=== PATIENT | male | born 1950 | race Caucasian/White ===

== ENCOUNTER → 2017-02-06 | Outpatient (CLI) | payer MEDICARE, OTHER ==
[~2017-02-06] MED LIST: ADALAT CC60 MG PO; ASPIRIN 81M81 MG/TA2 PO; FLOMAX 0.40.4 MG/CAP PO; GLUCOPHAGE1000 MG PO; HYGROTON25 MG PO; LIPITOR 10MG10 MG PO; PRAVACHOL 40MG40 MG PO; PRINIVIL20 MG PO; PRINIVIL40 MG PO; TENORMIN 2525 MG/TAB PO; VICTOZA6 MG/ML SQ; ZYLOPRIM 100MG100 MG PO
== END ==
LOC: COL.RAD 13:15
DX: N28.1 Cyst of kidney, acquired (principal)

== ENCOUNTER 2017-05-15 07:09 | Outpatient (CLI) | payer MEDICARE, OTHER ==
[~2017-05-15] VITALS: Ht 188.1 cm; Wt 101.8 kg
[2017-05-15] VITALS (30 sets, daily range): BP systolic 108–176; BP diastolic 59–107; PULSE 41–87; TEMP 97.4
[2017-05-15 07:39] LABS: HEMATOCRIT 51.2 % (42.0-52.0); HEMOGLOBIN 17.5 g/dl (13.5-18.0); MEAN CELL VOLUME 88 fl (80.0-100.0); MEAN CORPUSCULAR HEMOGLOBIN 30 pg (27.0-31.0); MEAN CORPUSCULAR HGB CONC 34 g/dl (33.0-37.0); MEAN PLATELET VOLUME 10.1 fl (7.4-10.4); PLATELET COUNT 245 K/mm3 (130-400); RED BLOOD COUNT 5.79 M/mm3 (4.20-5.60); REDCELL DISTRIBUTION WIDTH-CV 13.2 % (11.5-14.5)
[2017-05-15 07:47] LABS: PROTHROMBIN TIME 10.6 SECONDS (9.7-12.8)
== END 2017-05-15 16:53 | disposition home or self-care (01) ==
LOC: COL.RAD 07:09
PROVIDERS: Internal Medicine
DX: N18.3 Chronic kidney disease, stage 3 (moderate) (principal); E11.21 Type 2 diabetes mellitus with diabetic nephropathy; I12.9 Hypertensive chronic kidney disease with stage 1 through stage 4 chronic kidney disease, or unspecified chronic kidney disease; N40.0 Benign prostatic hyperplasia without lower urinary tract symptoms; Z90.49 Acquired absence of other specified parts of digestive tract; Z87.891 Personal history of nicotine dependence; E66.8 Other obesity
CPT/HCPCS: J0360; J2250; J3010

== ENCOUNTER 2019-05-13 09:28 | Observation (INO) | payer MEDICARE, OTHER ==
[~2019-05-13] VITALS: Ht 188 cm; Wt 101.8 kg
[~2019-05-13 09:28] MED LIST changes: +CARAFATE 1GM1 G PO; +LANTUS100 U/ML SQ; +PRILOSEC 20MG20 MG PO; +PROCARDIA XL 6060 MG PO; +VICTOZA6 MG/ML
[2019-05-13] MEDS ORDERED: BASAGLAR K100 UNIT/1 (09:34)
[2019-05-13] MEDS ORDERED: PRINIVIL20 MG PO (09:35)
[2019-05-13] MEDS ORDERED: ADALAT CC60 MG PO (09:35)
[2019-05-13] MEDS ORDERED: COREG12.5 MG PO (09:36)
[2019-05-13] MEDS ORDERED: CALCITRIOL (09:36)
[2019-05-13 10:00] LABS: BASO # 0.1 (0.0-0.2); BASO % 0.4 % (0.0-2.0); EOS # 0.1 (0.0-0.7); EOS % 0.5 % (0-4.0); GRAN # 10.5 (1.4-6.5); GRAN % 76.7 % (42.2-75.2); HEMATOCRIT 50.7 % (42.0-52.0); HEMOGLOBIN 17.4 g/dl (13.5-18.0); LYMPH # 2.5 (1.2-3.4); MEAN CELL VOLUME 88 fl (80.0-100.0); MEAN CORPUSCULAR HEMOGLOBIN 30 pg (27.0-31.0); MEAN CORPUSCULAR HGB CONC 34 g/dl (33.0-37.0); MEAN PLATELET VOLUME 9.7 fl (7.4-10.4); MONO # 0.6 (0.1-0.6); PLATELET COUNT 249 K/mm3 (130-400); RED BLOOD COUNT 5.79 M/mm3 (4.20-5.60); REDCELL DISTRIBUTION WIDTH-CV 13.2 % (11.5-14.5)
[2019-05-13 10:11] LABS: ALANINE AMINOTRANSFERASE 19 U/L (21-72); ALBUMIN 3.8 gm/dL (3.5-5.0); ALKALINE PHOSPHATASE 59 U/L (50-136); ANION GAP 8 mmol/L (7-16); AST,SGOT 23 U/L (15-37); BILIRUBIN,TOTAL 0.5 mg/dL (0.0-1.0); BLOOD UREA NITROGEN 30 mg/dL (9-20); CALCIUM 8.9 mg/dL (8.4-10.2); CARBON DIOXIDE 26 mmol/L (22-30); CHLORIDE 106 mmol/L (98-107); CREATININE, serum 1.74 (0.66-1.25); GLUCOSE 183 mg/dL (74-106); POTASSIUM 4.4 mmol/L (3.4-5.0); SODIUM 140 mmol/L (137-145); TOTAL PROTEIN 6.8 gm/dL (6.4-8.2)
[2019-05-13 10:22] LABS: TROPONIN-I < 0.012 ng/mL (0.000-0.035)
[2019-05-13 10:26] LABS: LIPASE 192 U/L (23-300)
[2019-05-13 10:37] LABS: ACETONE,SERUM NEGATIVE
[2019-05-13 11:33] LABS: COLLECTION METHOD CLEAN CATCH
[2019-05-13 11:40] LABS: PH 6 (5-8); SQUAMOUS EPITHELIAL None Seen /hpf; URINE APPEARANCE Clear; URINE BACTERIA None Seen /hpf; URINE BILIRUBIN Negative (NEGATIVE); URINE BLOOD Negative (NEGATIVE); URINE COLOR Yellow; URINE GLUCOSE 3+ (NEGATIVE); URINE KETONE Trace (NEGATIVE); URINE LEUKOCYTE ESTERASE Negative (NEGATIVE); URINE NITRATE Negative (NEGATIVE); URINE PROTEIN(semi-quant) 3+ (NEGATIVE); URINE RBC None Seen /hpf; URINE UROBILINOGEN Negative (NEGATIVE)
[2019-05-13 16:51] VITALS: BP 154/96; PULSE 64; TEMP 97.5
--- NOTE | 2019-05-13 18:00 | NUR ---
PT ADMITTED TO ROOM AT THIS TIME.
[2019-05-13 19:58] VITALS: BP 166/95; PULSE 65; TEMP 97.7
[2019-05-13 20:00] VITALS: BP 160/80
[2019-05-13 20:02] VITALS: BP 173/103
--- NOTE | 2019-05-13 20:30 | NUR ---
Shift assessment complete.
--- NOTE | 2019-05-13 21:45 | NUR ---
Pt resting on side of bed, states she has had loose BM's x2. Nausea better. IV Fluids continue at 125mL/hr. Call light within reach
[2019-05-14] VITALS (9 sets, daily range): BP systolic 152–192; BP diastolic 70–117; PULSE 57–111; TEMP 97.8–98.6
--- NOTE | 2019-05-14 02:43 | NUR ---
Pt resting in bed with HOB elevated. IV to R AC infusing NS at 125mL/hr. Denies pain, Face flushed. BS 213 at HS. Call light within reach.
--- NOTE | 2019-05-14 06:09 | NUR ---
Pt reports feeling better this AM. Says he is hungry. Denies any nausea this shift. Continues to be on a clear liquid diet. Voiding per urinal clear, yellow urine. Call light in reach.
[2019-05-14 06:23] LABS: ANION GAP 3 mmol/L (7-16); BLOOD UREA NITROGEN 26 mg/dL (9-20); CARBON DIOXIDE 25 mmol/L (22-30); CHLORIDE 114 mmol/L (98-107); CHOLESTEROL 115 mg/dL (120-200); CHOLESTEROL RISK RATIO 4.6; CREATININE, serum 1.71 (0.66-1.25); GLUCOSE 83 mg/dL (74-106); HDL CHOLESTEROL 25 mg/dL; LDL CHOLESTEROL 59 mg/dL; POTASSIUM 3.8 mmol/L (3.4-5.0); SODIUM 142 mmol/L (137-145); TRIGLYCERIDE 156 mg/dL
[2019-05-14 06:31] LABS: TROPONIN-I < 0.012 ng/mL (0.000-0.035)
--- NOTE | 2019-05-14 07:43 | NUR ---
End of shift report given to PATTI Marshall.
[2019-05-14 08:22] LABS: BASO # 0.1 (0.0-0.2); BASO % 0.5 % (0.0-2.0); EOS # 0.1 (0.0-0.7); EOS % 0.7 % (0-4.0); GRAN # 7.1 (1.4-6.5); GRAN % 65.4 % (42.2-75.2); HEMATOCRIT 43.4 % (42.0-52.0); LYMPH % 27.6 % (20.0-51.0); MEAN CELL VOLUME 89 fl (80.0-100.0); MEAN CORPUSCULAR HEMOGLOBIN 30 pg (27.0-31.0); MEAN CORPUSCULAR HGB CONC 34 g/dl (33.0-37.0); MONO # 0.6 (0.1-0.6); MONO % 5.5 % (1.7-9.3); PLATELET COUNT 233 K/mm3 (130-400); RED BLOOD COUNT 4.87 M/mm3 (4.20-5.60); REDCELL DISTRIBUTION WIDTH-CV 13.2 % (11.5-14.5)
[2019-05-14 08:31] LABS: HEMOGLOBIN 14.6 g/dl (13.5-18.0)
--- NOTE | 2019-05-14 12:05 | NUR ---
Initial visit; Patient thanked Appliance Servicer for looking in on him and offering comfort and encouragement. Appliance Servicer will keep Silas in her prayers and offered God's blessings today.
--- NOTE | 2019-05-14 14:34 | NUR ---
JULES met with the patient and patient's , Flakita, to discuss discharge plan. The patient lives in [place] with his . He reports independence with ADLs and has a cane and walker available, if needed. The patient's PCP is Dr. Aleksandr Ferguson and he receives his medications at the [facility]. He reports no difficulties obtaining his meds. The patient does not have advanced directives in EMR, but he states that he does have them completed and that his PCP's office should have a copy. He states that his is his DPOA-HC. SW attempted to contact the patient's PCP office to request a copy. SW left a voicemail. The patient plans to return home with his upon discharge. No additional needs at this time.
--- NOTE | 2019-05-14 18:29 | NUR ---
PTS B/P REMAIN HIGH, MEDICATIONS AJUSTED IN ATTEMPTS TO LOWER, DID SHOW SOME IMPROVEMENT, AND HAVE DECREASED SOME THIS EVENING. PT RECIEVING NS @125, INFUSSING WITHOUT ISSUE. ORTHOSTATIC VITALS OBTAINED THIS AM, DID HAVE HIGHER B/P WHEN STOOD UP. PT/OT HAVE WORKED WITH PT TODAY, PT DID VOICE CONPLAINT OF STILL REMAINING DIZZY WHEN UP AMBULAING. ADVANCED DIET TOLERATED, NO ISSUES NOTED, NO C/O N/V/D. MRI WAS OBTAINED THIS AM AND RESULTS ON CHART. NEUROS REMAIN UNREMARKABLE.
[2019-05-14] MEDS ORDERED: COREG 25MG25 MG/TAB PO (18:34)
[2019-05-14] MEDS ORDERED: PRINIVIL40 MG PO (18:34)
--- NOTE | 2019-05-14 20:15 | NUR ---
Pt sitting on edge of bed. Tele notified of pt discharge. IV fluids stopped and IV site dc'd with cath intact. Pt dressed and discharge instructions gone over with him and his with verbal understanding. Dismissed per w/c to home with spouse. RT checked O2 sats and were 97%.
== END 2019-05-14 20:30 | disposition home or self-care (01) ==
LOC: COL.ER 09:28 → MEDICAL 14:05
PROVIDERS: Emergency Medicine; Physician Assistant; ADMIT Family Medicine
DX: R55 Syncope and collapse (principal); E78.5 Hyperlipidemia, unspecified; K21.9 Gastro-esophageal reflux disease without esophagitis; D72.829 Elevated white blood cell count, unspecified; I12.9 Hypertensive chronic kidney disease with stage 1 through stage 4 chronic kidney disease, or unspecified chronic kidney disease; E11.22 Type 2 diabetes mellitus with diabetic chronic kidney disease; N18.9 Chronic kidney disease, unspecified; R00.1 Bradycardia, unspecified; Z79.4 Long term (current) use of insulin; Z87.891 Personal history of nicotine dependence; Z84.1 Family history of disorders of kidney and ureter; Z88.0 Allergy status to penicillin; Z86.73 Personal history of transient ischemic attack (TIA), and cerebral infarction without residual deficits; I08.1 Rheumatic disorders of both mitral and tricuspid valves
CPT/HCPCS: A9585; C9113; G0378; J1644; J1815; J2060; J2405; J2550; J7030

== ENCOUNTER → 2020-05-05 | Outpatient (CLI) | payer MEDICARE, OTHER ==
[~2020-05-05] MED LIST changes: +ASPIRIN E.C. 8181 MG PO; +BASAGLAR K100 UNIT/1; +CALCITRIOL; +COREG 25MG25 MG/TAB PO; +COREG12.5 MG PO; +ELIQUIS 5MG PO; +LANTUS SOLOS100 U/ML SQ; +OMNICEF 300MG300 MG PO; +OZEMPIC0.25 MG/0. SQ; +PACERONE200 MG PO
== END ==
LOC: COL.VAS 13:15
DX: R42 Dizziness and giddiness (principal)

== ENCOUNTER → 2021-04-01 | Outpatient (CLI) | payer MEDICARE, OTHER | LOC: COL.RAD 03-31 13:30 | DX: I10 Essential (primary) hypertension (principal); F17.201 Nicotine dependence, unspecified, in remission ==

== ENCOUNTER → 2021-06-10 | Outpatient (CLI) | payer MEDICARE, OTHER | LOC: COL.RAD 05-25 15:00 | DX: Z12.2 Encounter for screening for malignant neoplasm of respiratory organs (principal); Z87.891 Personal history of nicotine dependence ==

== ENCOUNTER → 2022-06-14 | Outpatient (CLI) | payer MEDICARE, OTHER | LOC: COL.RAD 09:20 | DX: Z12.2 Encounter for screening for malignant neoplasm of respiratory organs (principal); F17.211 Nicotine dependence, cigarettes, in remission ==